=== PATIENT | female | born 1980 | race Caucasian/White ===

== ENCOUNTER 2016-12-02 20:09 | Emergency (ER) | payer BC ==
[~2016-12-02] VITALS: Ht 157.5 cm; Wt 65.0 kg
[~2016-12-02 20:09] MED LIST: BENZ100C70 PO; IBUP-1542 PO; PROM6.25 PO
[2016-12-02 20:16] VITALS: Ht 157.5 cm; Wt 65.0 kg
--- NOTE | 2016-12-02 21:36 | ERD ---
ER Documentation Chief Complaint Date/Time DATE: 12/02/16 TIME: 21:28 Chief Complaint abd pain x6 months -n/v +diarrhea HPI 36-year-old female presents here in emergency department for complaints of generalized abdominal pain for 6 months on-and-off, with diarrhea episodes. Patient had been having watery stools, multiple episodes per day. Patient denies any blood in the stool. Patient denies any black stool. Patient denies any vomiting. Patient denies any fever or chills. Patient denies any recent travel. Patient did not take any medications to help with symptoms. ROS All systems reviewed and are negative except as per history of present illness. Medications Home Meds Active Scripts Ibuprofen* (Motrin*) 600 Mg Tab, 600 MG PO Q6H Y for PAIN AND OR ELEVATED TEMP, #30 Prov:YANETH SUBRAMANIAN PA-C 04/25/15 Promethazine w/Codeine* (Phenergan w/Codeine* Syrup) 5 Ml Syrup, 5 ML PO QHS Y for COUGH, #50 ML Prov:YANETH SUBRAMANIAN PA-C 04/25/15 Benzonatate* (Tessalon Perle*) 100 Mg Capsule, 100 MG PO TID, #14 CAP Prov:YANETH SUBRAMANIAN PA-C 04/25/15 Allergies Allergies: Coded Allergies: Penicillins (Verified Allergy, Severe, SEIZURE, 04/25/15) cephalexin (Verified Allergy, Severe, RASHES, 04/25/15) PMhx/Soc History of Surgery: Yes (C SECTION, BTL, tonsillectomy, hernia repair) Anesthesia Reaction: No Hx Neurological Disorder: No Hx Respiratory Disorders: No Hx Cardiac Disorders: No Hx Psychiatric Problems: No Hx Miscellaneous Medical Probl: No Hx Alcohol Use: Yes (SOCIALLY) Hx Substance Use: No Hx Tobacco Use: Yes FmHx Family History: No coronary disease, No diabetes, No other Physical Exam Vitals Vital Signs Date Time Temp Pulse Resp B/P Pulse Ox O2 Delivery O2 Flow Rate FiO2 12/02/16 20:16 98.8 77 18 123/72 100 Physical Exam GENERAL: The patient is well developed and appropriate for usual state of health, in no apparent distress. CHEST: Clear to auscultation bilaterally. There are no rales, wheezes or rhonchi. HEART: Regular rate and rhythm. No murmurs, clicks, rubs or gallops. No S3 or S4. ABDOMEN: Soft, nontender and nondistended. Hyperactive bowel sounds. No rebound or guarding. No gross peritonitis. No gross organomegaly or masses. No Huertas sign or McBurney point tenderness. BACK: No midline or flank tenderness. EXTREMITIES: Equal pulses bilaterally. There is no peripheral clubbing, cyanosis or edema. No focal swelling or erythema. Full range of motion. Grossly neurovascularly intact. NEURO: Alert and oriented. Cranial nerves 2-12 intact. Motor strength in all 4 extremities with 5/5 strength. Sensation grossly intact. Normal speech and gait. SKIN: There is no apparent rash or petechia. The skin is warm and dry. HEMATOLOGIC AND LYMPHATIC: There is no evidence of excessive bruising or lymphedema. No gross cervical, axillary, or inguinal lymphadenopathy. Result Diagram: 12/02/16214912/02/162149 Results 24 hrs Laboratory Tests Test 12/02/16 21:50 White Blood Count 7.410^3/ul Red Blood Count 5.2510^6/ul Hemoglobin 11.8g/dl Hematocrit 38.1% Mean Corpuscular Volume 72.6fl Mean Corpuscular Hemoglobin 22.5pg Mean Corpuscular Hemoglobin Concent 31.0g/dl Red Cell Distribution Width 13.7% Platelet Count 92034^3/UL Mean Platelet Volume 9.8fl Neutrophils % 56.2% Lymphocytes % 33.2% Monocytes % 8.8% Eosinophils % 1.1% Basophils % 0.4% Nucleated Red Blood Cells % 0.0/100WBC Neutrophils # 4.210^3/ul Lymphocytes # 2.510^3/ul Monocytes # 0.710^3/ul Eosinophils # 0.110^3/ul Basophils # 0.010^3/ul Nucleated Red Blood Cells # 0.010^3/ul Urine Color YELLOW Urine Clarity SLIGHTLY CLOUDY Urine pH 6.0 Urine Specific [place] 1.013 Urine Ketones NEGATIVEmg/dL Urine Nitrite NEGATIVEmg/dL Urine Bilirubin NEGATIVEmg/dL Urine Urobilinogen NEGATIVEmg/dL Urine Leukocyte Esterase NEGATIVELeu/ul Urine Microscopic RBC 1/HPF Urine Microscopic WBC 3/HPF Urine Bacteria FEW/HPF Urine Hemoglobin NEGATIVEmg/dL Urine Glucose NEGATIVEmg/dL Urine Total Protein NEGATIVEmg/dl Sodium Level 138mmol/L Potassium Level 3.8mmol/L Chloride Level 99mmol/L Carbon Dioxide Level 28mmol/L Anion Gap 15 Blood Urea Nitrogen 12mg/dl Creatinine 0.55mg/dl Glucose Level 78mg/dl Calcium Level 9.3mg/dl Total Bilirubin 0.2mg/dl Direct Bilirubin 0.00mg/dl Indirect Bilirubin 0.2mg/dl Aspartate Amino Transf (AST/SGOT) 21IU/L Alanine Aminotransferase (ALT/SGPT) 35IU/L Alkaline Phosphatase 70IU/L Total Protein 8.0g/dl Albumin 5.2g/dl Globulin 2.80g/dl Albumin/Globulin Ratio 1.85 Lipase 58U/L PROCEDURE: CT Abdomen and Pelvis without contrast CLINICAL INDICATION: Left lower quadrant abdominal pain TECHNIQUE: Transaxial images were obtained through the abdomen and pelvis on a multi-slice scanner without the intravenous contrast administration. No oral contrast had previously been given. Sagittal and coronal re-formations were subsequently reconstructed. One or more of the following dose reduction techniques were used: - Automated exposure control. - Adjustment of the mA and/or kV according to patient size. - Use of iterative reconstruction technique. Radiation dose: CTDIvol = 9.83 mGy; DLP = 512.18 mGy-cm. COMPARISON: No prior studies are available for comparison. FINDINGS: Lung bases: The visualized lung bases appear unremarkable. Liver: The liver is enlarged but no focal lesion is identified. Gallbladder: The wall is not thickened. No radiopaque stones are identified. Bile ducts: The intra and extrahepatic bile ducts are normal in caliber. Pancreas: Appears normal with no mass or inflammation evident. Spleen: The spleen is mildly enlarged. Adrenals: A 1.6 cm right adrenal nodule is evident which measures -4 HU and likely represents a cyst or benign adenoma. Kidneys, ureters and bladder: A 2 mm nephrolith is seen within the mid pole jonathan of the right kidney. At least 2-2 mm nephroliths are seen in the inferior pole calyces of the right kidney. A 2 mm nonobstructing nephrolith is seen within the superior pole jonathan of the left kidney, a 4 mm nonobstructing nephrolith is seen within a midpole jonathan of the left kidney, and a 3 mm nonobstructing nephrolith is seen within the inferior pole jonathan of the left kidney. No renal mass or hydronephrosis is evident and there is no perinephric stranding. The ureters are normal in caliber and no ureteroliths are identified. The bladder is suboptimally distended but appears unremarkable. Reproductive organs: He uterus is midline and retroflexed. An ovoid solid structure is seen in the left adnexal region measuring 3.6 x 8-0.6 x 2.0 cm which likely represents a mildly prominent but unremarkable left ovary. Phleboliths are seen in the pelvis. Stomach and bowel: The stomach appears unremarkable. Substantial stool is seen to the colon. There is no evidence of bowel obstruction or inflammation. Appendix: A normal vermiform appendix is evident. Peritoneum: No free intraperitoneal fluid or air is identified. Aorta: Normal in caliber with no aneurysmal dilatation. IVC: Unremarkable. Lymph nodes: No pathologically enlarged nodes are identified. Osseous structures: The osseous elements appear intact. IMPRESSION: 1. Several bilateral nonobstructing nephroliths are identified with the largest measuring 4 mm in maximal diameter seen on the left. There is no evidence of urinary outflow obstruction or ureterolithiasis. The bladder is poorly distended but unremarkable. 2. Substantial stool seen to the colon without evidence of bowel obstruction or inflammation. A normal vermiform appendix is evident. 3. Hepatomegaly with no focal lesion. 4. Mild splenomegaly 5. Ovoid solid left adnexal structure measuring 3.6 x 2.6 x 2.0 cm which likely represents a normal left ovary. This could be confirmed by means of pelvic sonography with Doppler if clinically indicated. 6. There is no free intraperitoneal fluid or air. 7. Otherwise, unremarkable noncontrast enhanced CT scan of the abdomen and pelvis. Physician Radha Date Time Electronically viewed and signed by Physician Radha on 12/02/2016 22:51 RH/ CC: PETER FERRO [employer] Procedures/MDM Medical Decision Making: Patient symptoms nonspecific at this time, chronic diarrhea and nonspecific. Can be some form of acute gastroenteritis, further evaluation, possible colonoscopy and stool studies was recommended. Will trial patient with antibiotics in case this may be bacterial Gresh enteritis. There is low suspicion for abdominal emergencies at this time. Patients abdominal exam is normal at this time. Patients radiology exam does not show any abdominal emergencies at this time. There is low suspicion for appendicitis, cholecystitis, abdominal aortic aneurysms or peritonitis at this time. There is low suspicion for sepsis. Patient appears well and is hemodynamically stable. Disposition: Home. Condition: Stable Prescription Bentyl, Flagyl, ciprofloxacin Instructions: Patient is advised to take medications as prescribed. Patient is advised to rest, increase fluid intake and do brat diet for next 1-2 days and progress as tolerated. Patient is advised that if symptoms are worse, severe abdominal pain, uncontrolled vomiting, high fever, severe flank pain, worst signs and symptoms, to return to the emergency department immediately. Otherwise, patient can follow up with primary care doctor in 5-7 days. Request colonoscopy and stool studies with primary care doctor. Departure Diagnosis: Primary Impression: Chronic diarrhea Condition: Stable Patient Instructions: Treating Diarrhea Additional Instructions: Patient is advised to take medications as prescribed. Patient is advised to rest , increase fluid intake and do brat diet for next 1-2 days and progress as tolerated. Patient is advised that if symptoms are worse, severe abdominal pain , uncontrolled vomiting, high fever, severe flank pain, worst signs and symptoms , to return to the emergency department immediately. Otherwise, patient can follow up with primary care doctor in 5-7 days. Request colonoscopy and stool studies with primary care doctor. PETER FERRO NP Dec 02, 2016 21:36
[2016-12-02 22:10] LABS: ADD SCAN DIFF NO
[2016-12-02 22:19] LABS: ADD UMIC NO; BASOPHILS % 0.4 % (0.0-2.0); EOSINOPHILS # 0.1 10^3/ul (0.0-0.5); EOSINOPHILS % 1.1 % (0.0-7.0); HEMATOCRIT 38.1 % (37.0-47.0); HEMOGLOBIN 11.8 g/dl (12.0-16.0); LYMPHOCYTES # 2.5 10^3/ul (0.8-2.9); LYMPHOCYTES % 33.2 % (15.0-51.0); MEAN CORPUSCULAR HEMOGLOBIN 22.5 pg (29.0-33.0); MEAN CORPUSCULAR VOLUME 72.6 fl (82.0-101.0); MEAN PLATELET VOLUME 9.8 fl (7.4-10.4); MONOCYTE # 0.7 10^3/ul (0.3-0.9); MONOCYTES % 8.8 % (0.0-11.0); NEUTROPHIL # 4.2 10^3/ul (1.6-7.5); NEUTROPHILS % 56.2 % (39.0-77.0); PLATELET COUNT 404 10^3/UL (140-415); RED BLOOD COUNT 5.25 10^6/ul (4.20-5.40); RED CELL DISTRIBUTION WIDTH 13.7 % (11.5-14.5); UR ASCORBIC ACID NEGATIVE (NEGATIVE); UR BACTERIA FEW /HPF (NONE SEEN); UR BILIRUBIN (Dip) NEGATIVE (NEGATIVE); UR BLOOD (Dip) NEGATIVE (NEGATIVE); UR CLARITY SLIGHTLY CLOUDY (CLEAR); UR COLOR YELLOW (YELLOW); UR GLUCOSE (Dip) NEGATIVE (NEGATIVE); UR KETONES (Dip) NEGATIVE (NEGATIVE); UR LEUKOCYTE ESTERASE (Dip) NEGATIVE Leu/ul (NEGATIVE); UR NITRITE (Dip) NEGATIVE (NEGATIVE); UR RBC 1 /HPF (0-5); UR SPECIFIC GRAVITY (Dip) 1.013 (1.003-1.030); UR TOTAL PROTEIN (Dip) NEGATIVE (NEGATIVE); UR UROBILINOGEN (Dip) NEGATIVE (NEGATIVE); WHITE BLOOD COUNT 7.4 10^3/ul (4.8-10.8)
[2016-12-02 22:36] LABS: ALBUMIN 5.2 g/dl (3.3-4.9); ALBUMIN/GLOBULIN RATIO 1.85; BILIRUBIN,INDIRECT 0.2 mg/dl (0-1.1); BILIRUBIN,TOTAL 0.2 mg/dl (0.2-1.3); CALCIUM 9.3 mg/dl (8.4-10.2); CREATININE 0.55 mg/dl (0.44-1.00); POTASSIUM 3.8 mmol/L (3.5-5.1)
--- NOTE | 2016-12-02 22:52 | RADRPT ---
PROCEDURE: CT Abdomen and Pelvis without contrast CLINICAL INDICATION: Left lower quadrant abdominal pain TECHNIQUE: Transaxial images were obtained through the abdomen and pelvis on a multi-slice scanner without the intravenous contrast administration. No oral contrast had previously been given. Sagit danielle and coronal re-formations were subsequently reconstructed. One or more of the following dose reduction techniques were used: - Automated exposure control. - Adjustment of the mA and/or kV according to patient size. - Use of iterative reconstruction technique. Radiation dose: CTDIvol = 9.83 mGy; DLP = 512.18 mGy-cm. COMPARISON: No prior studies are available for comparison. FINDINGS: Lung bases: The visualized lung bases appear unremarkable. Liver: The liver is enlarged but no focal lesion is identified. Gallbladder: The wall is not thickened. No radiopaque stones are identified. Bile ducts: The intra and extrahepatic bile ducts are normal in caliber. Pancreas: Appears normal with no mass or inflammation evident. Spleen: The spleen is mildly enlarged. Adrenals: A 1.6 cm right adrenal nodule is evident which measures -4 HU and likely represents a cyst or benign adenoma. Kidneys, ureters and bladder: A 2 mm nephrolith is seen within the mid pole jonathan of the right kidne y. At least 2-2 mm nephroliths are seen in the inferior pole calyces of the right kidney. A 2 mm n onobstructing nephrolith is seen within the superior pole jonathan of the left kidney, a 4 mm nonobstru cting nephrolith is seen within a midpole jonathan of the left kidney, and a 3 mm nonobstructing nephro lith is seen within the inferior pole jonathan of the left kidney. No renal mass or hydronephrosis is evident and there is no perinephric stranding. The ureters are normal in caliber and no ureteroliths are identified. The bladder is suboptimally distended but appears unremarkable. Reproductive organs: He uterus is midline and retroflexed. An ovoid solid structure is seen in the left adnexal region measuring 3.6 x 8-0.6 x 2.0 cm which likely represents a mildly prominent but un remarkable left ovary. Phleboliths are seen in the pelvis. Stomach and bowel: The stomach appears unremarkable. Substantial stool is seen to the colon. There is no evidence of bowel obstruction or inflammation. Appendix: A normal vermiform appendix is evident. Peritoneum: No free intraperitoneal fluid or air is identified. Aorta: Normal in caliber with no aneurysmal dilatation. IVC: Unremarkable. Lymph nodes: No pathologically enlarged nodes are identified. Osseous structures: The osseous elements appear intact. IMPRESSION: 1. Several bilateral nonobstructing nephroliths are identified with the largest measuring 4 mm in m aximal diameter seen on the left. There is no evidence of urinary outflow obstruction or ureterolit hiasis. The bladder is poorly distended but unremarkable. 2. Substantial stool seen to the colon without evidence of bowel obstruction or inflammation. A no rmal vermiform appendix is evident. 3. Hepatomegaly with no focal lesion. 4. Mild splenomegaly 5. Ovoid solid left adnexal structure measuring 3.6 x 2.6 x 2.0 cm which likely represents a normal left ovary. This could be confirmed by means of pelvic sonography with Doppler if clinically indica ilan. 6. There is no free intraperitoneal fluid or air. 7. Otherwise, unremarkable noncontrast enhanced CT scan of the abdomen and pelvis. Physician Radha Date Time Electronically viewed and signed by Physician Radha on 12/02/2016 22:51 /
[2016-12-02] MEDS ORDERED: METR500T PO (23:22)
[2016-12-02] MEDS ORDERED: CIPR500T4 PO (23:22)
[2016-12-02] MEDS ORDERED: DICY10CA60 PO (23:22)
[2016-12-02] MEDS ORDERED: FLUC150T17 PO (23:38)
[2016-12-02 23:43] VITALS: BP 128/74; PULSE 70; RESP 16
== END 2016-12-02 23:44 | disposition home or self-care (01) ==
LOC: FTE 20:09
DX: K52.9 Noninfective gastroenteritis and colitis, unspecified (principal)
CPT/HCPCS: 36415; 74176; 80053; 81001; 83690; 85025; Z7502; 81003